=== PATIENT | male | born 1940 | race Caucasian/White ===

== ENCOUNTER 2022-03-02 05:51 | Emergency (ER) | payer MEDICARE ==
[~2022-03-02 05:51] MED LIST: EPINEPHrine 1:10,000 1 MG/10 ML Syringe IV ONE; Rocuronium 50 MG/5 ML Vial ONE; Succinylcholine 200 MG/10 ML MDV ONE
== END 2022-03-02 19:40 | disposition expired ==
LOC: JP.ED 05:51
DX: I46.9 Cardiac arrest, cause unspecified (principal)
CPT/HCPCS: 92950; 99285-25; J0171; J0330